=== PATIENT | female | born 1955 | race Caucasian/White ===

== ENCOUNTER 2022-05-23 02:41 | Outpatient (CLI) | payer MEDICARE, SELFPAY ==
[2022-05-23 13:03] LABS: ALT 26 U/L (14-59); AST 16 U/L (15-37); Alkaline Phosphatase 63 U/L (46-116); Anion Gap 9.1 mmol/L (3-11); BUN 17 mg/dL (7-18); Bilirubin, Total 0.4 mg/dL (0.2-1.0); CO2 27.9 mmol/L (21.0-32.0); CREATININE 0.8 mg/dL (0.55-1.02); Calcium 9.9 mg/dL (8.5-10.1); Calculated LDL 104 mg/dL (<100); Chloride 106 mmol/L (98-107); Cholesterol 216 mg/dL (<200); Estimated GFR 81.72 (mL/min/1.73m2); Glucose 96 mg/dL (74-106); HDL Cholesterol 101 mg/dL (40-60); Potassium 4.5 mmol/L (3.5-5.1); Sodium 143 mmol/L (136-145); Total Protein 7.4 g/dL (6.4-8.2); Triglyceride 59 mg/dL (<150)
== END 2022-05-23 02:42 | disposition home or self-care (01) ==
LOC: LOS 02:42
PROVIDERS: PCP Family Medicine; Visit Provider Family Medicine
DX: Z00.00 Encounter for general adult medical examination without abnormal findings (principal); I10 Essential (primary) hypertension; Z13.6 Encounter for screening for cardiovascular disorders
CPT/HCPCS: 36415; 80053; 80061

== ENCOUNTER 2022-09-13 02:23 | Outpatient (CLI) | payer MEDICARE, OTHER, SELFPAY ==
--- NOTE | 2022-09-13 08:45 | DI.DEXA_ITS ---
Exam(s) XR DEXA BONE DENSITY W/WO CORINA EXAM: XR DEXA BONE DENSITY W/WO CORINA CLINICAL HISTORY: screening FOR OSTEOPOROSIS, MENOPAUSAL DISORDER,N95.9 TECHNIQUE: Holo[employer] C densitometer analysis of left hip, lumbar spine and the left forearm. Lateral survey image of the thoracic and lumbar spine. COMPARISON: DX DEXA BONE DENSITY WITH CORINA from 01/14/2013 FINDINGS: Lateral view of the thoracic and lumbar spine shows no evidence of compression fractures. Bone mineral density measurements of the lumbar spine correspond to a total T-score of 1.0, in the n ormal range. This represents an 8.4 percent decrease when compared with 2013. Bone mineral density measurements of the left hip correspond to a total T-score of -0.7. The femora l neck T-score is -1.1, in the osteopenic range. this represents a 17.3 percent decrease compared w ith 2013. The left forearm bone mineral density measurements correspond to a T-score of the distal 3rd of -0.1 , in the normal range.. The right forearm was analyzed on the prior exam. IMPRESSION: Normal bone mineral density of the lumbar spine and left forearm. Osteopenia of the left hip with si gnificant decrease in bone density from 2013.
--- NOTE | 2022-09-13 15:08 | DI.MAMMO_ITS ---
Exam(s) MAMMO SCREENING EXAM: MG MAMMO SCREENING CLINICAL HISTORY: screening,Z12.39 TECHNIQUE: Mammograms were interpreted according to the usual protocol including computer analysis w ith CAD system, tomosynthesis and C-view imaging. COMPARISON: SCREENING NANCY MAMMO W/CAD DIGI from 08/22/2011 Screening Bilat Mammo from 11/21/2016 FINDINGS: The breasts are composed of scattered fibroglandular densities, Breast Density category B. No suspicious masses or suspicious microcalcifications are seen. No skin thickening or abnormal axillary lymph nodes are seen. There has been no significant change from prior exams. IMPRESSION: BI-RADS Category 1, Negative mammogram Yearly screening mammography is recommended. Breast Density - Category B, scattered fibroglandular densities. A negative radiographic report should not delay biopsy if a dominant or clinically suspicious mass is present. Up to ten percent of cancers are not identified on mammography. A negative report may reinforce clinical impression. Adenosis and dense breasts may obscure an underlying neoplasm. False positive reports average 6 to 10%. Patient will receive a letter notifying them of these results.
== END 2022-09-13 02:43 ==
LOC: DI 02:23
PROVIDERS: PCP Family Medicine; Visit Provider Family Medicine
DX: Z13.820 Encounter for screening for osteoporosis (principal); Z12.31 Encounter for screening mammogram for malignant neoplasm of breast; N95.9 Unspecified menopausal and perimenopausal disorder
CPT/HCPCS: 77063; 77067; 77080

== ENCOUNTER 2023-06-05 12:45 | Outpatient (REF) | payer MEDICARE, OTHER, SELFPAY ==
[2023-06-05 21:23] LABS: Anion Gap 8.8 mmol/L (3-11); BUN 24 mg/dL (7-18); CO2 29.2 mmol/L (21.0-32.0); CREATININE 0.8 mg/dL (0.55-1.02); Chloride 107 mmol/L (98-107); Estimated GFR 81.21 (mL/min/1.73m2); Glucose 96 mg/dL (74-106); Potassium 4.9 mmol/L (3.5-5.1); Sodium 145 mmol/L (136-145)
== END 2023-06-05 12:46 | disposition home or self-care (01) ==
LOC: LBN 12:45
PROVIDERS: PCP Family Medicine; Visit Provider Family Medicine
DX: I10 Essential (primary) hypertension (principal)
CPT/HCPCS: 80048

== ENCOUNTER 2024-07-02 00:37 | Outpatient (CLI) | payer MEDICARE, OTHER, SELFPAY ==
--- NOTE | 2024-07-02 08:00 | DI.RAD_ITS ---
Exam(s) XR ANKLE LT COMPLETE EXAM: XR ANKLE LT COMPLETE CLINICAL HISTORY: chronic L ankle pain,m25.572 TECHNIQUE: 2D digital imaging was performed. Three views. COMPARISON: CR RIGHT ANKLE COMPLETE from 12/16/2012 FINDINGS: BONES: No acute fracture is present. No bony destructive lesion is seen. Small heel spurs. Spurrin g at the anterior aspect of the distal tibia. JOINTS:Narrowing of the medial tibiotalar joint space. Spurring at this location as well as chronic small bony fragment. Mild spurring at the fibula talar joint. SOFT TISSUE: Medial soft tissue swelling. IMPRESSION: Degenerative changes, greatest of the medial tibial talar joint. DATA REPOSITORY: RADIATION DOSE DELIVERED:
--- NOTE | 2024-07-02 15:02 | DI.MAMMO_ITS ---
Exam(s) MAMMO SCREENING EXAM: MAMMO SCREENING CLINICAL HISTORY: screening,z12.39. TECHNIQUE: Bilateral full field digital CC and MLO mammographic images were obtained with 3D tomosyn thesis and utilizing computer aided detection (CAD). COMPARISON: Prior mammograms dating back to 2017 were reviewed. FINDINGS: There has been no significant change in the appearance and distribution of the fibroglandular tissue. Asymmetric densities in both breasts are unchanged from 2017. There are no new spiculated masses nor new malignant appearing microcalcification groups. There is no significant architectural distortion nor skin thickening-retraction. IMPRESSION: No radiographic evidence of malignancy. Stable benign-appearing findings. BI-RADS Category 2 - Benign Findings Breast Density - Category B - Scattered areas of fibroglandular density Breast density Category C or D implies that the patient has dense breast tissue. Dense breast tissue can make it harder to find cancer on a mammogram. Dense breast tissue is also associated with an incr eased risk of breast cancer. This information about the result of the mammogram report was provided to the patient to raise their awareness. Use this report when you speak with the patient about their risks for breast cancer, which includes their family history. At that time, you may recommend additional screening tests (Ultrasoun d or MRI) as these tests may add significant information. A negative radiographic report should not delay biopsy if a dominant or clinically suspicious mass is present. Up to ten percent of cancers are not identified on mammography. A negative report may reinforce clinical impression. Adenosis and dense breasts may obscure an underlying neoplasm. False positive reports average 6 to 10%. Patient will receive a letter notifying them of these results.
== END 2024-07-02 00:57 ==
LOC: DI 00:37
PROVIDERS: PCP Family Medicine; Visit Provider Family Medicine
DX: Z12.31 Encounter for screening mammogram for malignant neoplasm of breast (principal); M19.072 Primary osteoarthritis, left ankle and foot
CPT/HCPCS: 77063; 77067; 73610

== ENCOUNTER 2024-11-26 03:14 | Outpatient (CLI) | payer MEDICARE, OTHER, SELFPAY ==
--- NOTE | 2024-11-26 14:00 | DI.DEXA_ITS ---
Exam(s) XR DEXA BONE DENSITY W/WO CORINA EXAM: XR DEXA BONE DENSITY W/WO CORINA CLINICAL HISTORY: screening,MENOPAUSAL DISORDER,N95.9 TECHNIQUE: Holo[employer] C densitometer analysis of left hip, lumbar spine and left forearm. Lateral survey image of the thoracic and lumbar spine. COMPARISON: DX DEXA BONE DENSITY WITH CORINA from 01/14/2013 CR XR DEXA BONE DENSITY W/WO CORINA from 09/13/2022 FINDINGS: Lateral view of the thoracic and lumbar spine shows no evidence of compression fractures. Bone mineral density measurements of the lumbar spine correspond to a total T- score of 1.2, in the normal range. This is not significantly changed from 2022 but represents a 7.3 percent decrease from 2012. Bone mineral density measurements of the left hip correspond to a total T-score of 0.4. The femoral neck T-score is -1.3, in the osteopenic range. This represents a 4.4 percent increase from 2022 but a 13.7 percent decrease from 2012. Theleft forearm bone mineral density measurements correspond to a T-score of the distal 3rd of 0.2, in the normal range. This is not significantly changed from 2022. The forearm was not analyzed in 2012.. IMPRESSION: Normal bone mineral density of the spine and forearm. Osteopenia of the hip.
== END 2024-11-26 03:34 ==
LOC: DI 03:14
PROVIDERS: PCP Family Medicine; Visit Provider Family Medicine
DX: N95.9 Unspecified menopausal and perimenopausal disorder (principal); M85.89 Other specified disorders of bone density and structure, multiple sites
CPT/HCPCS: 77080